=== PATIENT | female | born 1960 | race Caucasian/White ===

== ENCOUNTER 2018-11-18 08:32 | Inpatient (IN) | payer OTHER ==
[2018-11-18] MEDS ORDERED: Albuterol/Ipratropium NEB.SOL* Albuterol 2.5 MG/Ipratropium 0.5 MG 3 ML INH ONE (08:52)
[2018-11-18 09:09] LABS: Influenza A Molecular NEGATIVE (Negative); Influenza B Molecular NEGATIVE (Negative)
[2018-11-18] MEDS ORDERED: cefTRIAXone(*) 1 GM in NS 0.9% 50 ML* 50 ML IVPB ONE (09:28)
[2018-11-18] MEDS ORDERED: NS 0.9% 1000 ML** 1,000 ML IV ONE (09:29)
[2018-11-18 09:31] LABS: Albumin 3.6 g/dL (3.2-5.2); Albumin/Globulin Ratio 1.1 (1-3); BUN/Creatinine Ratio 12.2 (8-20); C Reactive Protein 217.57 mg/L (<8.01); Calcium 8.8 mg/dL (8.6-10.3); EGFR African American 77.8 (>60); EGFR Non-African American 64.3 (>60); Globulin 3.4 g/dL (2-4); Potassium 4.1 mmol/L (3.5-5.0); Total Bilirubin 0.5 mg/dL (0.2-1.0)
[2018-11-18] MEDS ORDERED: Ketorolac INJ* 30 MG/ML 1 ML VIAL IV PUSH ONE (09:43)
[2018-11-18 09:50] LABS: ABS Basophils 0 10^3/ul (0-0.2); ABS Eosinophils 0 10^3/ul (0-0.6); ABS Lymphocytes 1.6 10^3/ul (1.0-4.8); ABS Monocytes 0.9 10^3/ul (0-0.8); ABS Neutrophils 11.1 10^3/ul (1.5-7.7); ABS Nucleated RBC 0 10^3/ul; Eosinophil % 0.1 %; Hematocrit 40 % (35-47); Lymphocyte % 11.7 %; Mean Corpuscular HGB Conc 33 g/dl (31-36); Mean Corpuscular Hemoglobin 29 pg (27-31); Mean Corpuscular Volume 89 fL (80-97); Nucleated Red Blood Cells % 0; Platelet Count 216 10^3/ul (150-450); Red Blood Count 4.45 10^6/ul (4.00-5.40); Red Cell Distribution Width 14 % (10.5-15); White Blood Count 13.6 10^3/ul (3.5-10.8)
--- NOTE | 2018-11-18 09:57 | ED ---
Shortness of Breath - HPI Summary HPI Summary: Patient is a 58-year-old female with history of rheumatoid arthritis presenting to the ED with worsening shortness of breath and cough without production 1 week. She is also endorsing subjective fevers, sweats and chills. She states she is having a difficult time breathing due to the cough. She does not use oxygen at home. She has one episode of a history of PNA several years ago. Denies any abdominal pain, urinary symptoms, back pain. Denies any recent travel, calf pain. She states she takes Humira daily. Symptoms are better with sitting upright, worse with lying flat. Production includes white phlegm. - History of Current Complaint Chief Complaint: EDFluSymptoms Time Seen by Provider: 11/18/18 08:45 Hx Obtained From: Patient Onset/Duration: Sudden Onset Timing: Constant Current Severity: Mild Dyspnea At: Rest Associated Signs & Symptoms: Cough (Productive), Wheezing, Fever, Chills - Risk Factors Pulmonary Embolism: Negative Cardiac: Negative Pseudomonas: Negative - Allergy/Home Medications Allergies/Adverse Reactions: Allergies Allergy/AdvReac Type Severity Reaction Status Date / Time No Known Allergies Allergy Verified 11/18/18 08:41 PMH/Surg Hx/FS Hx/Imm Hx Previously Healthy: Yes - Immunization History Hx Pertussis Vaccination: No Immunizations Up to Date: Yes Infectious Disease History: No Infectious Disease History: Denies: Traveled Outside the [place] in Last 30 Days - Social History Occupation: Employed Full-time Lives: With Family Alcohol Use: Rare Hx Substance Use: No Substance Use Type: Reports: None Hx Tobacco Use: Yes Smoking Status (MU): Former Smoker Review of Systems Positive: Fever, Chills. Negative: Fatigue, Skin Diaphoresis Negative: Photophobia, Blurred Vision Negative: Dental Pain Negative: Palpitations, Chest Pain Positive: Shortness Of Breath, Cough Negative: Abdominal Pain, Vomiting, Diarrhea, Nausea Negative: no symptoms reported Negative: Arthralgia, Myalgia Skin: Negative All Other Systems Reviewed And Are Negative: Yes Physical Exam Triage Information Reviewed: Yes Vital Signs On Initial Exam: Initial Vitals Temp Pulse Resp BP Pulse Ox 98.1 F 104 18 141/77 90 11/18/18 08:39 11/18/18 08:39 11/18/18 08:39 11/18/18 08:39 11/18/18 08:39 Vital Signs Reviewed: Yes Appearance: Positive: Well-Appearing, Well-Nourished Skin: Positive: Warm, Skin Color Reflects Adequate Perfusion Head/Face: Positive: Normal Head/Face Inspection Eyes: Positive: EOMI, MELINA, Conjunctiva Clear Neck: Positive: Supple, No Lymphadenopathy Respiratory/Lung Sounds: Positive: Rhonchi, Wheezes Cardiovascular: Positive: RRR, Pulses are Symmetrical in both Upper and Lower Extremities Musculoskeletal: Positive: Normal, Strength/ROM Intact Neurological: Positive: Sensory/Motor Intact, Alert, Oriented to Person Place, Time, Speech Normal Psychiatric: Positive: Affect/Mood Appropriate Diagnostics - Vital Signs Vital Signs Temp Pulse Resp BP Pulse Ox 11/18/18 09:43 100.6 F 11/18/18 09:26 112 119/79 94 11/18/18 09:02 103 16 94 11/18/18 09:01 101 94 11/18/18 08:48 109 85 11/18/18 08:39 98.1 F 104 18 141/77 90 - Laboratory Lab Results: Lab Results 11/18/18 11/18/18 11/18/18 Range/Units 08:57 09:06 09:06 WBC 13.6 H (3.5-10.8) 10^3/ul RBC 4.45 (4.00-5.40) 10^6/ul Hgb 13.0 (12.0-16.0) g/dl Hct 40 (35-47) % MCV 89 (80-97) fL MCH 29 (27-31) pg MCHC 33 (31-36) g/dl RDW 14 (10.5-15) % Plt Count 216 (150-450) 10^3/ul MPV 8.0 (7.4-10.4) fL Neut % (Auto) 81.5 % Lymph % (Auto) 11.7 % [place] % (Auto) 6.6 % Eos % (Auto) 0.1 % Baso % (Auto) 0.1 % Absolute Neuts (auto) 11.1 H (1.5-7.7) 10^3/ul Absolute Lymphs (auto) 1.6 (1.0-4.8) 10^3/ul Absolute Monos (auto) 0.9 H (0-0.8) 10^3/ul Absolute Eos (auto) 0 (0-0.6) 10^3/ul Absolute Basos (auto) 0 (0-0.2) 10^3/ul Absolute Nucleated RBC 0 10^3/ul Nucleated RBC % 0 Sodium 139 (135-145) mmol/L Potassium 4.1 (3.5-5.0) mmol/L Chloride 102 (101-111) mmol/L Carbon Dioxide 29 (22-32) mmol/L Anion Gap 8 (2-11) mmol/L BUN 11 (6-24) mg/dL Creatinine 0.90 (0.51-0.95) mg/dL Est GFR ( Amer) 77.8 (>60) Est GFR (Non-Af Amer) 64.3 (>60) BUN/Creatinine Ratio 12.2 (8-20) Glucose 108 H (70-100) mg/dL Lactic Acid (0.5-2.0) mmol/L Calcium 8.8 (8.6-10.3) mg/dL Total Bilirubin 0.50 (0.2-1.0) mg/dL AST 12 L (13-39) U/L ALT 14 (7-52) U/L Alkaline Phosphatase 47 (34-104) U/L C-Reactive Protein 217.57 H (<8.01) mg/L Total Protein 7.0 (6.4-8.9) g/dL Albumin 3.6 (3.2-5.2) g/dL Globulin 3.4 (2-4) g/dL Albumin/Globulin Ratio 1.1 (1-3) Influenza A (Rapid) Negative (Negative) Influenza B (Rapid) Negative (Negative) 11/18/18 Range/Units 09:06 WBC (3.5-10.8) 10^3/ul RBC (4.00-5.40) 10^6/ul Hgb (12.0-16.0) g/dl Hct (35-47) % MCV (80-97) fL MCH (27-31) pg MCHC (31-36) g/dl RDW (10.5-15) % Plt Count (150-450) 10^3/ul MPV (7.4-10.4) fL Neut % (Auto) % Lymph % (Auto) % [place] % (Auto) % Eos % (Auto) % Baso % (Auto) % Absolute Neuts (auto) (1.5-7.7) 10^3/ul Absolute Lymphs (auto) (1.0-4.8) 10^3/ul Absolute Monos (auto) (0-0.8) 10^3/ul Absolute Eos (auto) (0-0.6) 10^3/ul Absolute Basos (auto) (0-0.2) 10^3/ul Absolute Nucleated RBC 10^3/ul Nucleated RBC % Sodium (135-145) mmol/L Potassium (3.5-5.0) mmol/L Chloride (101-111) mmol/L Carbon Dioxide (22-32) mmol/L Anion Gap (2-11) mmol/L BUN (6-24) mg/dL Creatinine (0.51-0.95) mg/dL Est GFR ( Amer) (>60) Est GFR (Non-Af Amer) (>60) BUN/Creatinine Ratio (8-20) Glucose (70-100) mg/dL Lactic Acid 1.0 (0.5-2.0) mmol/L Calcium (8.6-10.3) mg/dL Total Bilirubin (0.2-1.0) mg/dL AST (13-39) U/L ALT (7-52) U/L Alkaline Phosphatase (34-104) U/L C-Reactive Protein (<8.01) mg/L Total Protein (6.4-8.9) g/dL Albumin (3.2-5.2) g/dL Globulin (2-4) g/dL Albumin/Globulin Ratio (1-3) Influenza A (Rapid) (Negative) Influenza B (Rapid) (Negative) Result Diagrams: 11/18/18 09:06 11/18/18 09:06 Lab Statement: Any lab studies that have been ordered have been reviewed, and results considered in the medical decision making process. Course/Dx - Course Course Of Treatment: During the course treatment, the patient is evaluated for worsening SOB and cough. Endorses fevers, sweats, chills. Vital signs on arrival show tachycardia 109, 119/79, 98.1 temp and a 85% on RA. Patient endorses smoking cessation 5 weeks ago. Patient is also immunocompromised and takes Humira daily for rheumatoid arthritis. Chest x-ray obtained which shows a left lower lobe infiltrate. Leukocytosis and an elevated CRP. On 2 L, patient increase his O2 sat to 92%. However when withdrawing the 02 sat she decreased to 85%. She is given rocephin and 2L fluids. Discussed case with Dr. dominguez who will admit for PNA. - Diagnoses Differential Diagnosis/HQI/PQRI: Positive: Bronchitis, Pneumonia Provider Diagnoses: Pneumonia - Physician Notifications Discussed Care of Patient With: Corinne Dominguez Instructed by Provider To: Admit As Inpatient Discharge - Sign-Out/Discharge Documenting (check all that apply): Patient Departure - Discharge Plan Condition: Fair Disposition: ADMITTED TO [facility] Referrals: Nishi Palacio MD [Primary Care Provider] - - Billing Disposition and Condition Condition: FAIR Disposition: Admitted to [facility]
[2018-11-18] MEDS ORDERED: methylPREDNISolone 125 MG* 2 ML VIAL IV ONE (11:34)
[2018-11-18] MEDS ORDERED: ED Azithromycn 500 mg/250 ml 500 MG/250 ML PREMIX.SET IVPB ONE (11:34)
[2018-11-18] MEDS ORDERED: Ondansetron INJ* 2 MG/ML VIAL IV PRN (11:35)
[2018-11-18] MEDS ORDERED: Acetaminophen TAB* 325 MG PO PRN (11:35)
[2018-11-18] MEDS ORDERED: Al Hydrox/Mg Hydrox/Simet LIQ* 30 ML UDC PO PRN (11:35)
[2018-11-18] MEDS ORDERED: Senna TAB PO PRN (11:35)
[2018-11-18] MEDS ORDERED: Docusate CAP* 100 MG PO PRN (11:35)
[2018-11-18] MEDS ORDERED: Albuterol 2.5 MG/3 ML NEB.SOL* (0.083%) INH PRN (11:37)
[2018-11-18] MEDS ORDERED: Albuterol/Ipratropium NEB.SOL* Albuterol 2.5 MG/Ipratropium 0.5 MG 3 ML INH PRN (11:37)
[2018-11-18] MEDS: NS 0.9% 1000 ML** 1,000 ML IV SCH (13:06)
[2018-11-18] MEDS: Heparin VIAL(*) 5000 UNITS/ML VIAL (FIVE THOUSAND) SUBCUT SCH ×2 (15:50→21:45)
[2018-11-18] MEDS ORDERED: Azithromycin IV(*) 500 MG in NS 0.9% 250 ML* 250 ML IVPB ONE (16:00)
--- NOTE | 2018-11-18 16:00 | HP ---
CC: Dr. Palacio.* HISTORY AND PHYSICAL: DATE OF ADMISSION: 11/18/18 TIME OF EVALUATION: 11:30 PRIMARY CARE PHYSICIAN: Dr. Palacio. CHIEF COMPLAINT: Cough, shortness of breath. HISTORY OF PRESENT ILLNESS: This is a 58-year-old female with a past medical history of rheumatoid arthritis on immunosuppressives who presents to the emergency room with persistent cough and shortness of breath. The patient states she began having fever as high as 101.5 on the 11 of November. Her cough began on the . It was a productive cough and then she continued to have persistent fevers throughout with pleuritic pain. No nausea, vomiting, or diarrhea. No abdominal pain. No urinary symptoms. Her grand kids were in town visiting and they were sick with a cold. She has chronic pain. She denies any muscle aches. She has used an inhaler in the past with bronchitis, but she does not have any inhalers so she was not able to use anything during this illness. Otherwise, review of systems is negative. In the emergency room the patient had labs, imaging. She was given a liter of fluid, Toradol 30 mg IV , ceftriaxone 1 g, DuoNeb, and referred to the hospitalist service for further evaluation. PAST MEDICAL HISTORY: Rheumatoid arthritis, on Humira. MEDICATIONS: Humira injection every other week. ALLERGIES: No known drug allergies. FAMILY HISTORY: Mother at age 61 from lung cancer. Father at age 58 from colon cancer. SOCIAL HISTORY: The patient lives at home with her and son. Her is her health care proxy. She works doing office work. She quit smoking 5 weeks ago, at that time she was smoking half a pack per day for the past 40 years. No alcohol use or illicit drug use. Code status full code. REVIEW OF SYSTEMS: 14-point review of systems as mentioned in the HPI, otherwise negative. PHYSICAL EXAMINATION GENERAL: In no acute distress. Resting comfortably with her at the bedside. She does have a persistent wet cough. VITAL SIGNS: T-Max 100.6, pulse rate 102, respiratory rate 16, oxygen saturation 92% on 2 L, blood pressure 119/79. HEENT: Head normocephalic. Pupils equal and reactive, anicteric. Oropharynx; mucous membranes moist. Posterior oropharynx is erythematous. NECK: Supple. No lymphadenopathy. RESPIRATORY: Rhonchi bilaterally with bilateral expiratory wheezing. Diminished breath sounds. CARDIAC: Tachycardia. Soft systolic murmur heard throughout. ABDOMEN: Soft, nontender, and nondistended. EXTREMITIES: No cyanosis, clubbing, or edema. +1 DPs. NEUROLOGIC: Alert and oriented x3. No gross focal neurologic deficits. LABORATORY DATA: White count 13.6, hemoglobin 13, hematocrit 40, platelets 216. Sodium 139, potassium 4.1, chloride 102, bicarb 29, BUN 11, creatinine 0.9 , glucose 108, lactic acid 1, CRP 217. Influenza negative. Chest x-ray: Left lower lobe infiltrate. ASSESSMENT: This is a 58-year-old female with a past medical history of tobacco use and rheumatoid arthritis on immunosuppressants who presents to the emergency room with persistent fever and cough. Pneumonia. Assessment: The patient has findings consistent with community- acquired pneumonia. There is a concern she is immunosuppressed requiring oxygen. She also has a significant smoking history, has used inhalers in the past. I suspect she has underlying COPD and she is actively wheezing on exam. Plan: We will check an EKG, I gave her a dose of Solu-Medrol down in the emergency room and started her on prednisone 40 mg. We will also add azithromycin in addition to continuing her ceftriaxone. Continue on albuterol and DuoNebs as well. We will check a sputum culture, Legionella pneumococcal antigen. Follow up on the blood culture that was obtained and repeat her labs in the morning. I discussed with her that when she recovers from her acute illness she should get outpatient pulmonary function test either referred by her primary to set up an appointment with a lab pack chemist as I suspect that she will need to be maintenance inhaler in addition to albuterol regimen. CHRONIC MEDICAL PROBLEMS: 1. Rheumatoid arthritis. Holding her Humira during her acute illness. 2. FEN. Regular diet. 3. DVT prophylaxis. The patient scores moderate risk, placed her on heparin subcu t.i.d. 4. Code status. Full code. PATIENT TIME: Greater than 40 minutes spent doing the history and physical, more than half the time spent in direct patient contact. [id number]/CPS #: [id number] MTDD
[2018-11-19] MEDS: NS 0.9% 1000 ML** 1,000 ML IV SCH (03:48)
[2018-11-19] MEDS: Heparin VIAL(*) 5000 UNITS/ML VIAL (FIVE THOUSAND) SUBCUT SCH ×3 (05:18→21:53)
[2018-11-19 07:55] LABS: Hematocrit 37 % (35-47); Hemoglobin 12.1 g/dl (12.0-16.0); Mean Corpuscular HGB Conc 33 g/dl (31-36); Mean Corpuscular Hemoglobin 29 pg (27-31); Mean Corpuscular Volume 88 fL (80-97); Red Blood Count 4.23 10^6/ul (4.00-5.40); Red Cell Distribution Width 14 % (10.5-15); White Blood Count 11.6 10^3/ul (3.5-10.8)
[2018-11-19 07:58] LABS: BUN/Creatinine Ratio 17.6 (8-20); Calcium 8.2 mg/dL (8.6-10.3); EGFR African American 107.5 (>60); EGFR Non-African American 88.9 (>60); Potassium 4.2 mmol/L (3.5-5.0)
--- NOTE | 2018-11-19 08:18 | PN ---
Subjective Date of Service: 11/19/18 Interval History: Feels "about the same" as yesterday. Has walked to the bathroom with some shortness of breath. Still coughing but has not been able to provide a sputum sample. Afebrile. No nausea, vomiting, constipation, diarrhea, chest pain Objective Active Medications: Acetaminophen (Tylenol Tab*) 650 mg PO Q4H PRN PRN Reason: FEVER/PAIN Al Hydrox/Mg Hydrox/Simethicone (Maalox Plus*) 30 ml PO Q6H PRN PRN Reason: INDIGESTION Albuterol (Ventolin 2.5 Mg/3 Ml Neb.Susan*) 2.5 mg INH Q2H PRN PRN Reason: SOB/WHEEZING Albuterol/Ipratropium (Duoneb (Albuterol 2.5 Mg/Ipratropium 0.5 Mg)) 1 neb INH Q4H PRN PRN Reason: SOB/WHEEZING Benzonatate (Tessalon Cap*) 200 mg PO BID PRN PRN Reason: COUGH Docusate Sodium (Colace Cap*) 100 mg PO BID PRN PRN Reason: CONSTIPATION Heparin Sodium (Porcine) (Heparin Vial(*)) 5,000 units SUBCUT Q8HR [facility] Last Admin: 11/19/18 05:18 Dose: 5,000 units Sodium Chloride (Ns 0.9% 1000 Ml) 1,000 mls @ 100 mls/hr IV PER RATE [facility] Last Admin: 11/19/18 03:48 Dose: 100 mls/hr Ondansetron HCl (Zofran Inj*) 4 mg IV Q4H PRN PRN Reason: NAUSEA/VOMITING Prednisone (Deltasone Tab*) 40 mg PO DAILY [facility] Senna (Senokot Tab*) 1 tab PO BID PRN PRN Reason: CONSTIPATION Vital Signs - 8 hr 11/19/18 11/19/18 11/19/18 03:54 03:55 03:58 Temperature 97.5 F Pulse Rate 54 80 Respiratory 18 Rate Blood Pressure 141/75 (mmHg) O2 Sat by Pulse 93 Oximetry Oxygen Devices in Use Now: Nasal Cannula Appearance: alert, well appearing, able to speak in full sentences, comfortable Eyes: No Scleral Icterus Ears/Nose/Mouth/Throat: NL Teeth, Lips, Gums Neck: NL Appearance and Movements; NL JVP Respiratory: - - diffuse expiratory wheezing with rhonchi at both bases, prolonged expiratory phase Abdominal: NL Sounds; No Tenderness; No Distention Lymphatic: No Cervical Adenopathy Extremities: No Edema Skin: No Rash or Ulcers Neurological: Alert and Oriented x 3 Result Diagrams: 11/19/18 07:30 11/19/18 07:21 Additional Lab and Data: Lab Results 11/18/18 11/18/18 11/18/18 Range/Units 08:57 09:06 09:06 WBC 13.6 H (3.5-10.8) 10^3/ul RBC 4.45 (4.00-5.40) 10^6/ul Hgb 13.0 (12.0-16.0) g/dl Hct 40 (35-47) % MCV 89 (80-97) fL MCH 29 (27-31) pg MCHC 33 (31-36) g/dl RDW 14 (10.5-15) % Plt Count 216 (150-450) 10^3/ul MPV 8.0 (7.4-10.4) fL Neut % (Auto) 81.5 % Lymph % (Auto) 11.7 % [place] % (Auto) 6.6 % Eos % (Auto) 0.1 % Baso % (Auto) 0.1 % Absolute Neuts (auto) 11.1 H (1.5-7.7) 10^3/ul Absolute Lymphs (auto) 1.6 (1.0-4.8) 10^3/ul Absolute Monos (auto) 0.9 H (0-0.8) 10^3/ul Absolute Eos (auto) 0 (0-0.6) 10^3/ul Absolute Basos (auto) 0 (0-0.2) 10^3/ul Absolute Nucleated RBC 0 10^3/ul Nucleated RBC % 0 Sodium 139 (135-145) mmol/L Potassium 4.1 (3.5-5.0) mmol/L Chloride 102 (101-111) mmol/L Carbon Dioxide 29 (22-32) mmol/L Anion Gap 8 (2-11) mmol/L BUN 11 (6-24) mg/dL Creatinine 0.90 (0.51-0.95) mg/dL Est GFR ( Amer) 77.8 (>60) Est GFR (Non-Af Amer) 64.3 (>60) BUN/Creatinine Ratio 12.2 (8-20) Glucose 108 H (70-100) mg/dL Lactic Acid (0.5-2.0) mmol/L Calcium 8.8 (8.6-10.3) mg/dL Total Bilirubin 0.50 (0.2-1.0) mg/dL AST 12 L (13-39) U/L ALT 14 (7-52) U/L Alkaline Phosphatase 47 (34-104) U/L C-Reactive Protein 217.57 H (<8.01) mg/L Total Protein 7.0 (6.4-8.9) g/dL Albumin 3.6 (3.2-5.2) g/dL Globulin 3.4 (2-4) g/dL Albumin/Globulin Ratio 1.1 (1-3) Influenza A (Rapid) Negative (Negative) Influenza B (Rapid) Negative (Negative) 11/18/18 Range/Units 09:06 WBC (3.5-10.8) 10^3/ul RBC (4.00-5.40) 10^6/ul Hgb (12.0-16.0) g/dl Hct (35-47) % MCV (80-97) fL MCH (27-31) pg MCHC (31-36) g/dl RDW (10.5-15) % Plt Count (150-450) 10^3/ul MPV (7.4-10.4) fL Neut % (Auto) % Lymph % (Auto) % [place] % (Auto) % Eos % (Auto) % Baso % (Auto) % Absolute Neuts (auto) (1.5-7.7) 10^3/ul Absolute Lymphs (auto) (1.0-4.8) 10^3/ul Absolute Monos (auto) (0-0.8) 10^3/ul Absolute Eos (auto) (0-0.6) 10^3/ul Absolute Basos (auto) (0-0.2) 10^3/ul Absolute Nucleated RBC 10^3/ul Nucleated RBC % Sodium (135-145) mmol/L Potassium (3.5-5.0) mmol/L Chloride (101-111) mmol/L Carbon Dioxide (22-32) mmol/L Anion Gap (2-11) mmol/L BUN (6-24) mg/dL Creatinine (0.51-0.95) mg/dL Est GFR ( Amer) (>60) Est GFR (Non-Af Amer) (>60) BUN/Creatinine Ratio (8-20) Glucose (70-100) mg/dL Lactic Acid 1.0 (0.5-2.0) mmol/L Calcium (8.6-10.3) mg/dL Total Bilirubin (0.2-1.0) mg/dL AST (13-39) U/L ALT (7-52) U/L Alkaline Phosphatase (34-104) U/L C-Reactive Protein (<8.01) mg/L Total Protein (6.4-8.9) g/dL Albumin (3.2-5.2) g/dL Globulin (2-4) g/dL Albumin/Globulin Ratio (1-3) Influenza A (Rapid) (Negative) Influenza B (Rapid) (Negative) Microbiology and Other Data: Microbiology 11/18/18 08:43 Influenza Types A,B Antigen - Final Nasal Specimen received for Influenza A/B Molecular testing Assess/Plan/Problems-Billing Assessment: This is a 58 year old woman with RA on humira who presented to the ED with cough and shortness of breath and was found to have a LLL infiltrate - Patient Problems (1) Community acquired bacterial pneumonia Current Visit: Yes Status: Acute Code(s): J15.9 - UNSPECIFIED BACTERIAL PNEUMONIA SNOMED Code(s): 731260358 Comment: with other organisms also kept in mind given her immunosuppressed status! sputum culture has been unable to be obtained urine antigens also not obtained (2) Acute respiratory failure with hypoxia Current Visit: Yes Status: Acute Code(s): J96.01 - ACUTE RESPIRATORY FAILURE WITH HYPOXIA SNOMED Code(s): 39002681 Comment: likely related to pneumonia, but should have PFTs as outpatient to eval for restriction given h/o RA (3) Rheumatoid arthritis Current Visit: Yes Status: Acute Code(s): M06.9 - RHEUMATOID ARTHRITIS, UNSPECIFIED SNOMED Code(s): 28302382 Comment: no flare
[2018-11-19 08:48] LABS: ABS Basophils 0.1 10^3/ul (0-0.2); ABS Eosinophils 0 10^3/ul (0-0.6); ABS Lymphocytes 1.3 10^3/ul (1.0-4.8); ABS Monocytes 0.3 10^3/ul (0-0.8); ABS Neutrophils 9.9 10^3/ul (1.5-7.7); ABS Nucleated RBC 0 10^3/ul; Eosinophil % 0 %; Lymphocyte % 11.2 %; Mean Platelet Volume 8.8 fL (7.4-10.4); Nucleated Red Blood Cells % 0; Platelet Count 185 10^3/ul (150-450)
[2018-11-19] MEDS: predniSONE TAB* 20 MG PO SCH (10:38)
[2018-11-20] MEDS: Benzonatate CAP* 100 MG PO PRN ×2 (00:01→09:41)
[2018-11-20] MEDS: Heparin VIAL(*) 5000 UNITS/ML VIAL (FIVE THOUSAND) SUBCUT SCH ×2 (06:07→16:48)
[2018-11-20] MEDS: predniSONE TAB* 20 MG PO SCH (09:35)
[2018-11-20] MEDS ORDERED: cefTRIAXone(*) 1 GM in NS 0.9% 50 ML* 50 ML IVPB SCH (12:00)
[2018-11-20 16:48] VITALS: BP 134/73
--- NOTE | 2018-11-20 17:35 | PN ---
Subjective Date of Service: 11/20/18 Interval History: Ms. Tubbs is feeling okay, but has still been hypoxic. Needs 2L Objective Active Medications: Acetaminophen (Tylenol Tab*) 650 mg PO Q4H PRN PRN Reason: FEVER/PAIN Al Hydrox/Mg Hydrox/Simethicone (Maalox Plus*) 30 ml PO Q6H PRN PRN Reason: INDIGESTION Albuterol (Ventolin 2.5 Mg/3 Ml Neb.Susan*) 2.5 mg INH Q2H PRN PRN Reason: SOB/WHEEZING Albuterol/Ipratropium (Duoneb (Albuterol 2.5 Mg/Ipratropium 0.5 Mg)) 1 neb INH Q4H PRN PRN Reason: SOB/WHEEZING Last Admin: 11/20/18 09:58 Dose: 1 neb Benzonatate (Tessalon Cap*) 200 mg PO BID PRN PRN Reason: COUGH Last Admin: 11/20/18 09:41 Dose: 200 mg Docusate Sodium (Colace Cap*) 100 mg PO BID PRN PRN Reason: CONSTIPATION Heparin Sodium (Porcine) (Heparin Vial(*)) 5,000 units SUBCUT Q8HR [facility] Last Admin: 11/20/18 16:48 Dose: 5,000 units Ceftriaxone Sodium 1 gm/ (Sodium Chloride) 50 mls @ 200 mls/hr IVPB Q24H [facility] Last Admin: 11/20/18 12:03 Dose: 200 mls/hr Ondansetron HCl (Zofran Inj*) 4 mg IV Q4H PRN PRN Reason: NAUSEA/VOMITING Prednisone (Deltasone Tab*) 40 mg PO DAILY [facility] Last Admin: 11/20/18 09:35 Dose: 40 mg Senna (Senokot Tab*) 1 tab PO BID PRN PRN Reason: CONSTIPATION Vital Signs - 8 hr 11/20/18 11/20/18 11/20/18 10:00 11:25 15:24 Temperature 98.4 F 98.3 F Pulse Rate 90 91 57 Respiratory 14 18 22 Rate Blood Pressure 112/79 134/73 (mmHg) O2 Sat by Pulse 96 97 97 Oximetry Oxygen Devices in Use Now: Nasal Cannula Result Diagrams: 11/19/18 07:30 11/19/18 07:21 Additional Lab and Data: Lab Results 02/11/18/18 11/18/18 Range/Units 08:57 09:06 09:06 WBC 13.6 H (3.5-10.8) 10^3/ul RBC 4.45 (4.00-5.40) 10^6/ul Hgb 13.0 (12.0-16.0) g/dl Hct 40 (35-47) % MCV 89 (80-97) fL MCH 29 (27-31) pg MCHC 33 (31-36) g/dl RDW 14 (10.5-15) % Plt Count 216 (150-450) 10^3/ul MPV 8.0 (7.4-10.4) fL Neut % (Auto) 81.5 % Lymph % (Auto) 11.7 % [place] % (Auto) 6.6 % Eos % (Auto) 0.1 % Baso % (Auto) 0.1 % Absolute Neuts (auto) 11.1 H (1.5-7.7) 10^3/ul Absolute Lymphs (auto) 1.6 (1.0-4.8) 10^3/ul Absolute Monos (auto) 0.9 H (0-0.8) 10^3/ul Absolute Eos (auto) 0 (0-0.6) 10^3/ul Absolute Basos (auto) 0 (0-0.2) 10^3/ul Absolute Nucleated RBC 0 10^3/ul Nucleated RBC % 0 Sodium 139 (135-145) mmol/L Potassium 4.1 (3.5-5.0) mmol/L Chloride 102 (101-111) mmol/L Carbon Dioxide 29 (22-32) mmol/L Anion Gap 8 (2-11) mmol/L BUN 11 (6-24) mg/dL Creatinine 0.90 (0.51-0.95) mg/dL Est GFR ( Amer) 77.8 (>60) Est GFR (Non-Af Amer) 64.3 (>60) BUN/Creatinine Ratio 12.2 (8-20) Glucose 108 H (70-100) mg/dL Lactic Acid (0.5-2.0) mmol/L Calcium 8.8 (8.6-10.3) mg/dL Total Bilirubin 0.50 (0.2-1.0) mg/dL AST 12 L (13-39) U/L ALT 14 (7-52) U/L Alkaline Phosphatase 47 (34-104) U/L C-Reactive Protein 217.57 H (<8.01) mg/L Total Protein 7.0 (6.4-8.9) g/dL Albumin 3.6 (3.2-5.2) g/dL Globulin 3.4 (2-4) g/dL Albumin/Globulin Ratio 1.1 (1-3) Influenza A (Rapid) Negative (Negative) Influenza B (Rapid) Negative (Negative) 11/18/18 Range/Units 09:06 WBC (3.5-10.8) 10^3/ul RBC (4.00-5.40) 10^6/ul Hgb (12.0-16.0) g/dl Hct (35-47) % MCV (80-97) fL MCH (27-31) pg MCHC (31-36) g/dl RDW (10.5-15) % Plt Count (150-450) 10^3/ul MPV (7.4-10.4) fL Neut % (Auto) % Lymph % (Auto) % [place] % (Auto) % Eos % (Auto) % Baso % (Auto) % Absolute Neuts (auto) (1.5-7.7) 10^3/ul Absolute Lymphs (auto) (1.0-4.8) 10^3/ul Absolute Monos (auto) (0-0.8) 10^3/ul Absolute Eos (auto) (0-0.6) 10^3/ul Absolute Basos (auto) (0-0.2) 10^3/ul Absolute Nucleated RBC 10^3/ul Nucleated RBC % Sodium (135-145) mmol/L Potassium (3.5-5.0) mmol/L Chloride (101-111) mmol/L Carbon Dioxide (22-32) mmol/L Anion Gap (2-11) mmol/L BUN (6-24) mg/dL Creatinine (0.51-0.95) mg/dL Est GFR ( Amer) (>60) Est GFR (Non-Af Amer) (>60) BUN/Creatinine Ratio (8-20) Glucose (70-100) mg/dL Lactic Acid 1.0 (0.5-2.0) mmol/L Calcium (8.6-10.3) mg/dL Total Bilirubin (0.2-1.0) mg/dL AST (13-39) U/L ALT (7-52) U/L Alkaline Phosphatase (34-104) U/L C-Reactive Protein (<8.01) mg/L Total Protein (6.4-8.9) g/dL Albumin (3.2-5.2) g/dL Globulin (2-4) g/dL Albumin/Globulin Ratio (1-3) Influenza A (Rapid) (Negative) Influenza B (Rapid) (Negative) Microbiology and Other Data: Microbiology 11/18/18 08:43 Influenza Types A,B Antigen - Final Nasal Specimen received for Influenza A/B Molecular testing Assess/Plan/Problems-Billing Assessment: This is a 58 year old woman with RA on humira who presented to the ED with cough and shortness of breath and was found to have a LLL infiltrate - Patient Problems (1) Community acquired bacterial pneumonia Current Visit: Yes Status: Acute Code(s): J15.9 - UNSPECIFIED BACTERIAL PNEUMONIA SNOMED Code(s): 308977975 Comment: with other organisms also kept in mind given her immunosuppressed status! sputum culture has been unable to be obtained urine antigens also not obtained (2) Acute respiratory failure with hypoxia Current Visit: Yes Status: Acute Code(s): J96.01 - ACUTE RESPIRATORY FAILURE WITH HYPOXIA SNOMED Code(s): 00032575 Comment: likely related to pneumonia, but should have PFTs as outpatient to eval for restriction given h/o RA (3) Rheumatoid arthritis Current Visit: Yes Status: Acute Code(s): M06.9 - RHEUMATOID ARTHRITIS, UNSPECIFIED SNOMED Code(s): 24150218 Comment: no flare
--- NOTE | 2018-11-20 20:38 | DS ---
CC: Dr. Palacio * DISCHARGE SUMMARY: DATE OF ADMISSION: 11/18/18 DATE OF DISCHARGE: 11/20/18 PRINCIPAL DISCHARGE DIAGNOSES: 1. Strep pneumo community acquired pneumonia. 2. Immunosuppressed state. SECONDARY DISCHARGE DIAGNOSES: Rheumatoid arthritis, on Humira. MEDICATIONS AT DISCHARGE: 1. Humira injected weekly. 2. Augmentin 875 mg b.i.d. for 4 more days. PHYSICAL EXAMINATION AT DISCHARGE: Temperature 98.3, heart rate 57, respiratory rate 22, pulse ox 97% on room air, and blood pressure 134/73. General: Alert, well-appearing female in no distress. HEENT: Pupils equal, round, and reactive to light. Oral mucosa is moist. Neck: No JVP. Chest: Regular rate and rhythm. No murmurs. Lungs are clear bilaterally with no wheezes or rhonchi. Abdomen: Soft, nontender, and nondistended. No guarding or rebound. Extremities: No edema, rashes, or ulcers. HOSPITAL COURSE BY PROBLEM: 1. Community acquired pneumonia. Ms. Tubbs was admitted and started on Ceftriaxone and azithromycin. Given her immunocompromised state, further microbiologic workup was arranged and a strep pneumo urine antigen returned as positive. At the time of discharge a sputum culture is pending but the presumptive diagnosis at this time is strep pneumo pneumonia. Her official sputum cultures should be followed up upon at the time of followup. I am discharging her on 4 more days of Augmentin. 2. Acute hypoxic respiratory failure. She did require oxygen during this admission, but at the time of discharge she ambulated on room air and her pulse ox remained at 97%. 3. Rheumatoid arthritis. She is to continue on her home weekly Humira injections. FOLLOWUP NEEDED: Ms. Tubbs is to follow up with her primary care physician within 1 week to ensure she is improving. She is to return to the emergency department should shortness of breath, chest pain, or fevers occur of if she feels she is not getting better on this current regimen. TIME SPENT: Forty minutes was spent on this discharge. [id number]/[facility] #: [id number] MICHELLE
== END 2018-11-20 20:00 | disposition home or self-care (01) | DRG 193 ==
LOC: ED 08:32 → MED 11:35
PROVIDERS: ADMIT Pediatrics; ATTEND Internal Medicine
DX: J13 Pneumonia due to Streptococcus pneumoniae (principal); J96.01 Acute respiratory failure with hypoxia; M06.9 Rheumatoid arthritis, unspecified; G89.29 Other chronic pain; Z79.899 Other long term (current) drug therapy; Z80.1 Family history of malignant neoplasm of trachea, bronchus and lung; Z80.0 Family history of malignant neoplasm of digestive organs; Z87.891 Personal history of nicotine dependence; J44.9 Chronic obstructive pulmonary disease, unspecified
CPT/HCPCS: 36415; 71046; 80048; 80053; 83605; 85025; 86140; 87070; 87205; 87899; 93005; 94640; 99284; A9270-GY; J0456; J0696; J1644; J1885; J2930; J7512